=== PATIENT | female | born 1955 | race Caucasian/White ===

== ENCOUNTER 2018-01-18 13:08 | Emergency (ER) | payer MEDICAID ==
[2018-01-18 13:09] VITALS: BMI 23.3
[2018-01-18] MEDS ORDERED: Albuterol 0.083% Inhal Sol (2.5 mg/3 mL) UD IH STA (13:43)
[2018-01-18] MEDS ORDERED: Albuterol-Ipratrop 3 mg / 0.5 (3 ml) UD IH STA (13:43)
--- NOTE | 2018-01-18 13:52 | C.PDOC ---
History Of Present Illness 62 year old female with a PMHx of asthma and breast cancer presents to the emergency department with complaints of a cough that began three days ago, as well as seasonal allergy symptoms such as nasal congestion, post-nasal drip, and a sore throat. Patient describes her sore throat as a burning sensation in her upper airway. Patient states her cough is occasionally productive with yellow sputum, but otherwise it is mostly dry. Patient is treating herself with her asthma inhalers as well as Singulair and Prednisone but reports no relief. Patient is concerned about her symptoms due to her PMHx of breast cancer. Time Seen by Provider: 01/18/18 13:36 Chief Complaint (Nursing): Cough, Cold, Congestion History Per: Patient History/Exam Limitations: no limitations Onset/Duration Of Symptoms: Days (3) Current Symptoms Are (Timing): Still Present Location Of Pain: Throat Associated Symptoms: Sore Throat, Cough, Sputum (occasional, yellow), Sinus Drainage, Nasal Congestion Past Medical History Reviewed: Historical Data, Nursing Documentation, Vital Signs Vital Signs: Last Vital Signs Temp 97.9 F 01/18/18 13:17 Pulse 83 01/18/18 13:17 Resp 20 01/18/18 13:17 BP 135/82 01/18/18 13:17 Pulse Ox 97 01/18/18 13:58 - Medical History PMH: Anxiety (NO MEDICATION), Asthma, Bronchitis, COPD (ASTHMA), HTN, Malignancy (Breast), Migraine ("FROM MY SINSUS"), Pneumonia Denies: Chronic Kidney Disease Other Surgeries: Breast surgery - [facility] Procedures DX ULTRASOUND-THORAX NEC (05/27/13) EXCISE AXILLARY NODE (06/17/13) INJECT CA CHEMOTHER NEC (02/22/14) INJECT STEROID (11/01/13) INJECT/INFUSE NEC (03/12/14) INSERTION OF TOTALLY IMPLANTABLE VASC ACCESS DEVIC (08/25/13) LYMPHATIC SYSTEM SCAN (06/16/13) NEBULIZER THERAPY (03/12/14) PERCUTAN NEEDLE BIOPSY OF BREAST (05/27/13) SUBTOTAL MASTECTOMY (06/17/13) VASCULAR CATH IRRIGATION (05/12/15) Family History: States: No Known Family Hx - Social History Hx Tobacco Use: No Hx Alcohol Use: No Hx Substance Use: No - Immunization History Hx Tetanus Toxoid Vaccination: No Hx Influenza Vaccination: No Hx Pneumococcal Vaccination: No Review Of Systems ENT: Positive for: Nose Discharge, Nose Congestion, Throat Pain Respiratory: Positive for: Cough (mostly dry), Sputum (occasional, yellow) Physical Exam - Physical Exam Appears: Non-toxic, No Acute Distress Skin: Normal Color, Warm, Dry Eye(s): bilateral: Normal Inspection, PERRL, EOMI Ear(s): Bilateral: Normal Nose: Normal Oral Mucosa: Moist Throat: Normal Lymphatic: No Adenopathy Chest: Deformity Cardiovascular: Rhythm Regular Respiratory: Normal Breath Sounds, Wheezing (wheez and tight sound upon coughing ), Other (persistent cough) Neurological/Psych: Oriented x3, Normal Speech, Normal Cognition ED Course And Treatment - Laboratory Results Result Diagrams: 01/18/18 14:04 01/18/18 14:04 Lab Interpretation: Normal O2 Sat by Pulse Oximetry: 97 (RA) Pulse Ox Interpretation: Normal - Radiology CXR: Interpreted by Me CXR Interpretation: Yes: No Acute Disease Progress Note: Plan: CMP. CBC. CXR Two VIews. Albuterol 2.5mg INH. Duoneb 3ml INH. Nebulizer Treatment Reevaluation Time: 14:41 Reassessment Condition: Improved (after albuterol nebulizer. Lungs clear without wheezing during cough.) Disposition Counseled Patient/Family Regarding: Studies Performed, Diagnosis, Need For Followup, Rx Given - Disposition Referrals: Arley Shetty MD [Staff Provider] - Disposition: HOME/ ROUTINE Disposition Time: 14:41 Condition: IMPROVED Additional Instructions: Continue current asthma medication as prescribed, including Prednisone. Prescriptions: Azithromycin [Zithromax] 250 mg PO DAILY #1 packet Instructions: Upper Respiratory Infection (ED), Asthma in Adults Forms: [facility] ([place]) - Clinical Impression Clinical Impression: Upper respiratory infection, Exacerbation of asthma - Scribe Statement The provider has reviewed the documentation as recorded by the Scribe (Blayne Simms) Provider Attestation: All medical record entries made by the Scribe were at my direction and personally dictated by me. I have reviewed the chart and agree that the record accurately reflects my personal performance of the history, physical exam, medical decision making, and the department course for this patient. I have also personally directed, reviewed, and agree with the discharge instructions and disposition.
[2018-01-18 14:09] LABS: BASO % 0.4 % (0.0-2.0); EOS % 0.3 % (0.0-4.0); HEMOGLOBIN 13.1 g/dL (11.0-16.0); LYMPH # 1.6 K/uL (1.0-4.3); LYMPH % 16.3 % (20.0-40.0); MEAN CELL VOLUME 90.7 fL (81.0-99.0); MEAN CORPUSCULAR HEMOGLOBIN 30.9 pg (27.0-31.0); MEAN CORPUSCULAR HGB CONC 34.1 g/dL (33.0-37.0); MEAN PLATELET VOLUME 7.8 fL (7.2-11.7); MONO # 0.6 K/uL (0.0-0.8); MONO % 6.7 % (0.0-10.0); NEUT # 7.3 K/uL (1.8-7.0); NEUT % 76.3 % (50.0-75.0); RBC 4.25 Mil/uL (3.80-5.20); RED CELL DISTRIBUTION WIDTH 14.1 % (11.5-14.5)
[2018-01-18 14:12] LABS: WHITE BLOOD COUNT 9.6 K/uL (4.8-10.8)
[2018-01-18 14:20] LABS: ALB/GLOB RATIO 1.2 (1.0-2.1); ALBUMIN 4.4 g/dL (3.5-5.0); ALT/SGPT 34 U/L (9-52); AST/SGOT 29 U/L (14-36); BLOOD UREA NITROGEN 14 mg/dL (7-17); CALCIUM 10.3 mg/dl (8.6-10.4); GFR AFRICAN-AMERICAN > 60; GFR NON-AFRICAN AMERICAN > 60
[2018-01-18 14:52] VITALS: BP 132/82; PULSE 81; RESP 18; TEMP 98.4; O2SAT 98
--- NOTE | 2018-01-18 15:50 | RAD ---
HISTORY: SOB COMPARISON: Prior chest 01/20/2016. TECHNIQUE: Chest PA and lateral FINDINGS: LUNGS: No active pulmonary disease. PLEURA: No significant pleural effusion identified. No pneumothorax apparent. CARDIOVASCULAR: Normal. OSSEOUS STRUCTURES: No significant abnormalities. VISUALIZED UPPER ABDOMEN: Normal. OTHER FINDINGS: Surgical clips left breast once again evident with prior right MediPort now removed. IMPRESSION: No interval acute cardiopulmonary disease appreciated.
== END 2018-01-18 14:57 | disposition home or self-care (01) ==
LOC: C.ER 13:08
DX: J06.9 Acute upper respiratory infection, unspecified (principal); J45.901 Unspecified asthma with (acute) exacerbation

== ENCOUNTER 2018-07-11 15:53 | Inpatient (IN) | payer MEDICAID ==
[2018-07-11 15:53] VITALS: BMI 23.3
[2018-07-11] MEDS ORDERED: methylPREDNISolone 125 MG in Sodium Chloride 0.9% 100 ML IVPB ONE (16:57)
[2018-07-11] MEDS ORDERED: Albuterol-Ipratrop 3 mg / 0.5 (3 ml) UD INH STA ×3 (16:58→17:57)
--- NOTE | 2018-07-11 17:11 | C.PDOC ---
History Of Present Illness Pt is a 62 year old female with PMHx of breast cancer (2012) and asthma presents to ED for complaints of shortness of breath, cough with white phlegm, and chest tightness that began 1 week ago. Patient states she got her flu shot 2 days ago and symptoms worsened since then. Patient also states associated symptoms of generalized weakness and fatigue. Patient reports she has been hospitalized for asthma 2 months ago. Denies fever, nausea, vomiting, diarrhea, drug use, alcohol use, smoking, or any other physical complaints. Patient also states she started taking prednisone today and has been takig allergy medications and using her pump at home with no relief. Pt states that she just cannot stop coughing. PMD: * Arley Gaines Franch[employer] Consultant: * Sapna Castellanos Time Seen by Provider: 07/11/18 16:32 Chief Complaint (Nursing): Cough, Cold, Congestion History Per: Patient History/Exam Limitations: no limitations Onset/Duration Of Symptoms: Days Current Symptoms Are (Timing): Still Present Recent travel outside of the [place]: No Past Medical History Reviewed: Historical Data, Nursing Documentation, Vital Signs Vital Signs: Last Vital Signs Temp 98.8 F 07/11/18 16:01 Pulse 81 07/11/18 16:01 Resp 21 07/11/18 16:01 BP 113/76 07/11/18 16:01 Pulse Ox 99 07/11/18 16:01 - Medical History PMH: Anxiety (NO MEDICATION), Asthma, Bronchitis, COPD (ASTHMA), HTN, Malignancy (Breast), Migraine ("FROM MY SINSUS"), Pneumonia - [facility] Procedures DX ULTRASOUND-THORAX NEC (05/27/13) EXCISE AXILLARY NODE (06/17/13) INJECT CA CHEMOTHER NEC (02/22/14) INJECT STEROID (11/01/13) INJECT/INFUSE NEC (03/12/14) INSERTION OF TOTALLY IMPLANTABLE VASC ACCESS DEVIC (08/25/13) LYMPHATIC SYSTEM SCAN (06/16/13) NEBULIZER THERAPY (03/12/14) PERCUTAN NEEDLE BIOPSY OF BREAST (05/27/13) SUBTOTAL MASTECTOMY (06/17/13) VASCULAR CATH IRRIGATION (05/12/15) Family History: States: Unknown Family Hx - Social History Hx Tobacco Use: No Hx Alcohol Use: No Hx Substance Use: No - Immunization History Hx Tetanus Toxoid Vaccination: No Hx Influenza Vaccination: No Hx Pneumococcal Vaccination: No Review Of Systems Except As Marked, All Systems Reviewed And Found Negative. Constitutional: Positive for: Weakness. Negative for: Fever, Chills Cardiovascular: Positive for: Other (Chest tightness ) Respiratory: Positive for: Cough, Shortness of Breath (Due to Asthma ), Sputum (white ) Gastrointestinal: Negative for: Nausea, Vomiting, Diarrhea Skin: Negative for: Rash Neurological: Negative for: Weakness, Numbness Physical Exam - Physical Exam Appears: Non-toxic, No Acute Distress Skin: Normal Color, Warm, Dry, No Rash Head: Atraumatic Eye(s): bilateral: Normal Inspection, EOMI Ear(s): Bilateral: Normal Nose: Normal Oral Mucosa: Moist Tongue: Normal Appearing Lips: Normal Appearing Teeth: Normal Dentition Gingiva: Normal Appearing Throat: Normal, No Erythema, No Exudate, No Drooling, No Mass Neck: Normal ROM, Supple Chest: Symmetrical, No Tenderness Cardiovascular: Rhythm Regular, No Murmur Respiratory: Normal Breath Sounds, No Rales, No Rhonchi, Wheezing (mild end exp wheezing), Other (Frequent cough ) Gastrointestinal/Abdominal: Normal Exam, Bowel Sounds (Active ), Soft, No Tenderness Rectal: Deferred Back: Normal Inspection Extremity: Normal ROM Extremity: Bilateral: Atraumatic, Normal Color And Temperature, Normal ROM Pulses: Left Radial: Normal, Right Radial: Normal Neurological/Psych: Oriented x3, Normal Speech Gait: Steady ED Course And Treatment - Laboratory Results Result Diagrams: 07/11/18 17:21 07/11/18 17:21 O2 Sat by Pulse Oximetry: 99 (RA) Pulse Ox Interpretation: Normal - Other Rad CXR X-Ray: Viewed By Me, Read By Radiologist Interpretation: Date of service: 07/11/2018. HISTORY: SOB cough. COMPARISON: No prior. TECHNIQUE: Chest PA and lateral. FINDINGS: LUNGS: No active pulmonary disease. PLEURA: No significant pleural effusion identified. No pneumothorax apparent. CARDIOVASCULAR: No aortic atherosclerotic calcification present. Normal cardiac size. No pulmonary vascular congestion. OSSEOUS STRUCTURES: No significant abnormalities. VISUALIZED UPPER ABDOMEN: Normal. OTHER FINDINGS: Surgical clips again seen the left chest inferiorly. IMPRESSION: No interval acute cardiopulmonary disease appreciated. Medical Decision Making Medical Decision Making: Initial Impression: Asthma exacerbation r/o pneumonia Initial Plan: * Albuterol Nebulizer Treatment/Peak Flow * SOLU-Medrol * CXR * Blood Work * EKG * Flu AB Swab Progress Note(s): 6:41 PM - Case d/w Dr. Ayala. Pt won't stop coughing and still SOB even though given nebs. Dr. Ayala and I agree that pt will benefit from observation stay for further treatment. Disposition Counseled Patient/Family Regarding: Studies Performed, Diagnosis - Disposition Disposition: HOSPITALIZED Disposition Time: 18:29 Condition: FAIR Forms: [employer] (Latvian) - POA Present On Arrival: None - Clinical Impression Clinical Impression: Asthma attack, Bronchitis - Scribe Statement The provider has reviewed the documentation as recorded by the Scribe Liz Royal All medical record entries made by the Scribe were at my direction and personally dictated by me. I have reviewed the chart and agree that the record accurately reflects my personal performance of the history, physical exam, medical decision making, and the department course for this patient. I have also personally directed, reviewed, and agree with the discharge instructions and disposition. Decision To Admit - Pt Status Changed To: Hospital Disposition Of: Observation - . Bed Request Type: Regular Admitting Physician: Junito Ayala Patient Diagnosis: Asthma attack, Bronchitis
[2018-07-11 17:24] LABS: BASO % 0.7 % (0.0-2.0); EOS % 0.6 % (0.0-4.0); HEMOGLOBIN 12.2 g/dL (11.0-16.0); LYMPH # 0.8 K/uL (1.0-4.3); MEAN CELL VOLUME 89.8 fL (81.0-99.0); MEAN CORPUSCULAR HEMOGLOBIN 31.1 pg (27.0-31.0); MEAN CORPUSCULAR HGB CONC 34.6 g/dL (33.0-37.0); MONO # 0.3 K/uL (0.0-0.8); MONO % 5.9 % (0.0-10.0); NEUT # 4.4 K/uL (1.8-7.0); NEUT % 77.8 % (50.0-75.0); NRBC % 0.1 % (0.0-2.0); RBC 3.91 Mil/uL (3.80-5.20); RED CELL DISTRIBUTION WIDTH 13.8 % (11.5-14.5); WHITE BLOOD COUNT 5.6 K/uL (4.8-10.8)
[2018-07-11 17:37] LABS: ALB/GLOB RATIO 1.4 (1.0-2.1); ALBUMIN 4.3 g/dL (3.5-5.0); ALT/SGPT 29 U/L (9-52); AST/SGOT 24 U/L (14-36); BLOOD UREA NITROGEN 13 mg/dL (7-17); CALCIUM 9.6 mg/dl (8.6-10.4); GFR NON-AFRICAN AMERICAN > 60
[2018-07-11] MEDS ORDERED: Albuterol-Ipratrop 3 mg / 0.5 (3 ml) UD ONE ×2 (17:45→18:27)
--- NOTE | 2018-07-11 18:26 | RAD ---
Date of service: 07/11/2018 HISTORY: SOB cough COMPARISON: No prior. TECHNIQUE: Chest PA and lateral FINDINGS: LUNGS: No active pulmonary disease. PLEURA: No significant pleural effusion identified. No pneumothorax apparent. CARDIOVASCULAR: No aortic atherosclerotic calcification present. Normal cardiac size. No pulmonary vascular congestion. OSSEOUS STRUCTURES: No significant abnormalities. VISUALIZED UPPER ABDOMEN: Normal. OTHER FINDINGS: Surgical clips again seen the left chest inferiorly. IMPRESSION: No interval acute cardiopulmonary disease appreciated.
[2018-07-11] MEDS ORDERED: guaiFENesin 100 mg/5 ml Syrup UD PO PRN (18:30)
[2018-07-11] MEDS: MethylPREDNISolone 40 mg Vial IVP SCH (18:44)
[2018-07-11] MEDS ORDERED: Home Med 1 UNIT PO SCH (22:00)
[2018-07-12] MEDS: MethylPREDNISolone 40 mg Vial IVP SCH ×4 (00:13→18:03)
[2018-07-12] MEDS: Albuterol-Ipratrop 3 mg / 0.5 (3 ml) UD INH SCH ×6 (00:20→19:41)
[2018-07-12 08:08] LABS: BASO % 0.1 % (0.0-2.0); HEMOGLOBIN 12.5 g/dL (11.0-16.0); LYMPH # 1.1 K/uL (1.0-4.3); LYMPH % 12.9 % (20.0-40.0); MEAN CELL VOLUME 90.1 fL (81.0-99.0); MEAN CORPUSCULAR HEMOGLOBIN 30.8 pg (27.0-31.0); MEAN CORPUSCULAR HGB CONC 34.2 g/dL (33.0-37.0); MEAN PLATELET VOLUME 8.3 fL (7.2-11.7); MONO # 0.2 K/uL (0.0-0.8); MONO % 2.7 % (0.0-10.0); NEUT # 7.1 K/uL (1.8-7.0); NEUT % 84.3 % (50.0-75.0); RBC 4.07 Mil/uL (3.80-5.20); RED CELL DISTRIBUTION WIDTH 13.4 % (11.5-14.5); WHITE BLOOD COUNT 8.4 K/uL (4.8-10.8)
[2018-07-12 08:23] LABS: ALB/GLOB RATIO 1.4 (1.0-2.1); ALBUMIN 4.4 g/dL (3.5-5.0); ALT/SGPT 24 U/L (9-52); AST/SGOT 22 U/L (14-36); BLOOD UREA NITROGEN 16 mg/dL (7-17); CALCIUM 9.7 mg/dl (8.6-10.4); GFR NON-AFRICAN AMERICAN > 60
[2018-07-12] MEDS: Omega-3-Acid Ethyl Esters 1 GM Cap PO SCH (10:14)
[2018-07-12] MEDS: Pantoprazole 40 mg EC Tab PO SCH (18:48)
[2018-07-12] MEDS: ANASTROZOLE PO SCH (21:27)
[2018-07-12] MEDS: [UNRECOGNIZED DRUG - OTHER] PO SCH (21:27)
[2018-07-13] MEDS: MethylPREDNISolone 40 mg Vial IVP SCH ×4 (00:20→17:32)
[2018-07-13] MEDS: Albuterol-Ipratrop 3 mg / 0.5 (3 ml) UD INH SCH ×6 (00:21→20:56)
--- NOTE | 2018-07-13 08:10 | CP.PCM.PN ---
Subjective - Date & Time of Evaluation Date of Evaluation: 07/13/18 Time of Evaluation: 08:10 - Subjective Subjective: PGY2- Progress note for Dr. Ayala Patient is a 62 year old female with a history of breast cancer, asthma, HTN, and HLD, who presented with complaints of weakness, cough, and shortness of breath since . The patient states she went to her PMD on , received a flu shot, and since then, her symptoms have worsen. She currently complains of weakness, cough with white phlegm, soreness and pain with coughing, and nausea. She hs been using her Ventolin at least twice daily, her nebulizer, and Advair 500/50 BID. The patient denies fevers, headaches, vomiting, chest pain, palpitations, dysuria, hematuria, constipation, diarrhea. PMD: Dr. Sapna Shetty Certified Massage Therapist: Dr. Ayala PMHx: Breast cancer (diagnosed in 2012; underwent chemo and radiation in 2013); asthma, HTN, HLD SurgHx: Lumpectomy 2012; sinus surgery 2015 FamHx: Sister- lymphoma Allergies: Egg, Contrast, PCN Medication: Advair 500/50 BID, Lisinopril 10mg PO daily, Arimidex 1mg PO daily, [place] 3 daily, Ventolin prn Objective - Vital Signs/Intake and Output Vital Signs (last 24 hours): Temp Pulse Resp BP Pulse Ox 98.6 F 86 18 120/74 96 07/13/18 07:45 07/13/18 07:45 07/13/18 07:45 07/13/18 07:45 07/13/18 07:45 Intake and Output: 07/13/18 07/13/18 06:59 18:59 Intake Total 300 Output Total 400 Balance -100 - Medications Medications: Current Medications Albuterol/Ipratropium (Duoneb 3 Mg/0.5 Mg (3 Ml) Ud) 3 ml INH RQ4 [facility] Last Admin: 07/13/18 07:21 Dose: Not Given Aspirin (Ecotrin) 81 mg PO DAILY [facility] Last Admin: 07/12/18 10:14 Dose: 81 mg Guaifenesin (Robitussin) 100 mg PO QID PRN PRN Reason: Cough Home Med (Patient's Own Medication) 1 tab PO [facility] Last Admin: 07/12/18 21:27 Dose: 1 tab Lisinopril (Zestril) 10 mg PO DAILY [facility] Last Admin: 07/12/18 10:15 Dose: 10 mg Methylprednisolone (Solu-Medrol) 40 mg IVP Q6H [facility] Last Admin: 07/13/18 06:00 Dose: 40 mg Montelukast Sodium (Singulair) 10 mg PO HS [facility] Last Admin: 07/12/18 21:27 Dose: 10 mg Vttva-3-Wkpw Ethyl Esters (Lovaza) 1 gm PO DAILY [facility] Last Admin: 07/12/18 10:14 Dose: 1 gm Pantoprazole Sodium (Protonix Ec Tab) 40 mg PO DAILY [facility] Last Admin: 07/12/18 18:48 Dose: 40 mg Pneumococcal Polyvalent Vaccine (Pneumovax 23 Vaccine) 0.5 ml IM .ONCE ONE Stop: 07/13/18 10:01 - Labs Labs: 07/12/18 07:51 07/12/18 07:51 - Constitutional Appears: No Acute Distress - Head Exam Head Exam: NORMAL INSPECTION - Eye Exam Eye Exam: EOMI, Normal appearance - ENT Exam ENT Exam: Mucous Membranes Moist - Respiratory Exam Respiratory Exam: NORMAL BREATHING PATTERN. absent: Rales, Rhonchi, Wheezes, Respiratory Distress - Cardiovascular Exam Cardiovascular Exam: REGULAR RHYTHM, +S1, +S2 - GI/Abdominal Exam GI & Abdominal Exam: Soft, Normal Bowel Sounds. absent: Distended, Firm, Guarding, Tenderness - Extremities Exam Extremities Exam: Normal Inspection. absent: Calf Tenderness, Pedal Edema, Tenderness - Neurological Exam Neurological Exam: Alert, Awake, Oriented x3 - Psychiatric Exam Psychiatric exam: Normal Affect, Normal Mood - Skin Skin Exam: Dry, Intact, Normal Color, Warm Assessment and Plan - Assessment and Plan (Free Text) Plan: Asthma Exacerbation - Duonebs Q4 - Solumedrol 40mg IV Q6h - Breo 1 puf daily (Hospital does not carry Advair) - Robitussin DM prn for cough - Singulair 10mg PO daily Hx of Breast Cancer - Continue home medication: Arimidex 1mg PO daily HTN - Lisinopril 10mg PO daily HLD - Omega3 PO daily - ASA 81mg PO daily Prophylaxis - DVT: Heparin 5000u SC Q12h, SCDs - GI: not indicated - Heart healthy diet All management and orders per Dr. Ayala
[2018-07-13] MEDS: Pantoprazole 40 mg EC Tab PO SCH (09:47)
[2018-07-13] MEDS: Omega-3-Acid Ethyl Esters 1 GM Cap PO SCH (09:47)
[2018-07-13] MEDS ORDERED: Pneumococcal 23-Valent Vaccine IM ONE (10:00)
[2018-07-13] MEDS ORDERED: guaiFENesin DM 200 mg-20 mg/10 ml UD PO PRN (11:36)
[2018-07-13 16:06] VITALS: RESP 20
[2018-07-13] MEDS ORDERED: Influenza Vaccine 60 MCG/0.5 ML SYR (3 yr & up) IM ONE (21:08)
[2018-07-13] MEDS: ANASTROZOLE PO SCH (21:34)
[2018-07-13] MEDS: [UNRECOGNIZED DRUG - OTHER] PO SCH (21:34)
[2018-07-14] MEDS: Albuterol-Ipratrop 3 mg / 0.5 (3 ml) UD INH SCH ×6 (00:17→19:42)
[2018-07-14] MEDS: MethylPREDNISolone 40 mg Vial IVP SCH ×4 (00:28→18:33)
[2018-07-14 07:13] LABS: HEMOGLOBIN 12.2 g/dL (11.0-16.0); LYMPH # 1.1 K/uL (1.0-4.3); LYMPH % 6.8 % (20.0-40.0); MEAN CELL VOLUME 89.1 fL (81.0-99.0); MEAN CORPUSCULAR HEMOGLOBIN 30.4 pg (27.0-31.0); MEAN CORPUSCULAR HGB CONC 34.1 g/dL (33.0-37.0); MEAN PLATELET VOLUME 8.2 fL (7.2-11.7); MONO # 0.7 K/uL (0.0-0.8); MONO % 4.6 % (0.0-10.0); NEUT % 88.6 % (50.0-75.0); PLATELET COUNT 252 K/uL (130-400); RBC 4.01 Mil/uL (3.80-5.20); RED CELL DISTRIBUTION WIDTH 13.8 % (11.5-14.5)
[2018-07-14 07:17] LABS: WHITE BLOOD COUNT 15.8 K/uL (4.8-10.8)
[2018-07-14] MEDS: Fluticasone-Vilanterol 200/25mcg Diskus INH SCH (07:35)
[2018-07-14 08:09] LABS: ALB/GLOB RATIO 1.5 (1.0-2.1); ALBUMIN 4.1 g/dL (3.5-5.0); ALT/SGPT 20 U/L (9-52); AST/SGOT 22 U/L (14-36); BLOOD UREA NITROGEN 28 mg/dL (7-17); CALCIUM 9.4 mg/dl (8.6-10.4); GFR NON-AFRICAN AMERICAN > 60
[2018-07-14 08:35] LABS: LYMPHOCYTE 7 % (20-40); MONOCYTE 3 % (0-10); MYELOCYTE 1 % (0-0); NEUTROPHIL 89 % (50-75); PLATELET ESTIMATE NORMAL (NORMAL); TOTAL CELLS COUNTED 100
--- NOTE | 2018-07-14 10:01 | HP ---
HISTORY OF PRESENT ILLNESS: A 62-year-old female. The patient was admitted to the hospital with chief complaint of shortness of breath, weakness, fatigue, tiredness, cough. The patient came to the ER, presenting with history of breast cancer, COPD asthma. The patient is nonsmoker and nondrinker. PHYSICAL EXAMINATION: GENERAL: The patient is awake, alert, and oriented . VITAL SIGNS: Temperature 98, pulse 90. HEENT: Within normal limits. NECK: Supple. CHEST: Symmetrical. Good air entry. HEART: Regular. ABDOMEN: Soft. EXTREMITIES: No edema. IMPRESSION AND PLAN: The patient suffers from bronchial asthma, status asthmaticus. The patient is on bedrest, bronchodilators, steroid. Junito Ayala MD
[2018-07-14] MEDS ORDERED: Albuterol 0.083% Inhal Sol (2.5 mg/3 mL) UD INH STA (10:18)
[2018-07-14] MEDS: Pantoprazole 40 mg EC Tab PO SCH (11:08)
[2018-07-14] MEDS: Omega-3-Acid Ethyl Esters 1 GM Cap PO SCH (11:08)
--- NOTE | 2018-07-14 11:27 | CP.PCM.PN ---
Subjective - Date & Time of Evaluation Date of Evaluation: 07/14/18 Time of Evaluation: 11:25 - Subjective Subjective: Progress note. Attending: Dr. Ayala. Pt seen and examined at bedside. No acute distress. No events overnight. No fevers, chills, vomiting, diarrhea. Objective - Vital Signs/Intake and Output Vital Signs (last 24 hours): Temp Pulse Resp BP Pulse Ox 98.1 F 66 20 147/84 95 07/14/18 07:00 07/14/18 07:00 07/14/18 07:00 07/14/18 07:00 07/14/18 07:00 Intake and Output: 07/14/18 07/14/18 06:59 18:59 Intake Total 500 Output Total 600 Balance -100 - Medications Medications: Current Medications Albuterol/Ipratropium (Duoneb 3 Mg/0.5 Mg (3 Ml) Ud) 3 ml INH RQ4 [facility] Last Admin: 07/14/18 07:35 Dose: 3 ml Aspirin (Ecotrin) 81 mg PO DAILY [facility] Last Admin: 07/14/18 11:08 Dose: 81 mg Fluticasone/Vilanterol (Breo Ellipta 200-25 Mcg Inh) 1 puff INH RQD [facility] Guaifenesin/Dextromethorphan (Robitussin Dm) 10 ml PO Q4H PRN PRN Reason: Cough and congestion Heparin Sodium (Porcine) (Heparin) 5,000 units SC Q12 [facility] Last Admin: 07/14/18 11:07 Dose: 5,000 units Home Med (Patient's Own Medication) 1 tab PO [facility] Last Admin: 07/13/18 21:34 Dose: 1 tab Lisinopril (Zestril) 10 mg PO DAILY [facility] Last Admin: 07/14/18 11:08 Dose: 10 mg Methylprednisolone (Solu-Medrol) 40 mg IVP Q6H [facility] Last Admin: 07/14/18 06:23 Dose: 40 mg Montelukast Sodium (Singulair) 10 mg PO HS [facility] Last Admin: 07/13/18 21:34 Dose: 10 mg Udjzv-3-Lynl Ethyl Esters (Lovaza) 1 gm PO DAILY [facility] Last Admin: 07/14/18 11:08 Dose: 1 gm Pantoprazole Sodium (Protonix Ec Tab) 40 mg PO DAILY [facility] Last Admin: 07/14/18 11:08 Dose: 40 mg Pneumococcal Polyvalent Vaccine (Pneumovax 23 Vaccine) 0.5 ml IM .ONCE ONE Stop: 07/15/18 10:01 - Labs Labs: 07/14/18 07:03 07/14/18 07:03 - Constitutional Appears: Non-toxic, No Acute Distress - Head Exam Head Exam: ATRAUMATIC, NORMAL INSPECTION, NORMOCEPHALIC - Eye Exam Eye Exam: EOMI - ENT Exam ENT Exam: Mucous Membranes Moist, Normal Exam - Neck Exam Neck Exam: Full ROM, Normal Inspection. absent: Lymphadenopathy - Respiratory Exam Respiratory Exam: NORMAL BREATHING PATTERN. absent: Respiratory Distress - Cardiovascular Exam Cardiovascular Exam: +S1, +S2 - GI/Abdominal Exam GI & Abdominal Exam: Soft, Normal Bowel Sounds. absent: Tenderness - Extremities Exam Extremities Exam: Full ROM, Normal Inspection - Neurological Exam Neurological Exam: Alert, Awake, Oriented x3 - Psychiatric Exam Psychiatric exam: Normal Affect, Normal Mood - Skin Skin Exam: Dry, Intact, Normal Color, Warm Assessment and Plan - Assessment and Plan (Free Text) Assessment: This is a 62 yo female with 1. Asthma Exacerbation - Duonebs Q4, extra duoneb given this morning - Solumedrol 40mg IV Q6h - Breo 1 puf daily (Hospital does not carry Advair) - Robitussin DM prn for cough - Singulair 10mg PO daily 2. Hx of Breast Cancer - Continue home medication: Arimidex 1mg PO daily 3. HTN - Lisinopril 10mg PO daily 4. HLD -[place] 3 PO daily 5. CV risk reduction - ASA 81 mg PO daily 6. GI/DVT Prophylaxis - DVT: Heparin 5000 u SC Q12h, SCDs - GI: protonix 40 daily - Heart healthy diet discussed with Dr. Ayala.
--- NOTE | 2018-07-14 15:50 | CARD ---
APPROVED REPORT Date of service: 07/11/2018 EKG Measurement Heart [id number] <Conclusion> Normal sinus rhythm Normal Electrocardiogram
[2018-07-14 20:35] VITALS: O2SAT 96
[2018-07-14] MEDS: [UNRECOGNIZED DRUG - OTHER] PO SCH (21:20)
[2018-07-14] MEDS: ANASTROZOLE PO SCH (21:20)
[2018-07-15] MEDS: MethylPREDNISolone 40 mg Vial IVP SCH ×3 (00:06→12:05)
[2018-07-15] MEDS: Albuterol-Ipratrop 3 mg / 0.5 (3 ml) UD INH SCH ×3 (00:58→13:03)
[2018-07-15 08:22] LABS: BASO % 0.1 % (0.0-2.0); HEMOGLOBIN 12.4 g/dL (11.0-16.0); LYMPH % 8.1 % (20.0-40.0); MEAN CELL VOLUME 89.3 fL (81.0-99.0); MEAN CORPUSCULAR HEMOGLOBIN 30.7 pg (27.0-31.0); MEAN CORPUSCULAR HGB CONC 34.3 g/dL (33.0-37.0); MEAN PLATELET VOLUME 8.4 fL (7.2-11.7); MONO # 0.6 K/uL (0.0-0.8); MONO % 5.1 % (0.0-10.0); NEUT # 10.9 K/uL (1.8-7.0); NEUT % 86.7 % (50.0-75.0); PLATELET COUNT 253 K/uL (130-400); RBC 4.04 Mil/uL (3.80-5.20); RED CELL DISTRIBUTION WIDTH 13.6 % (11.5-14.5); WHITE BLOOD COUNT 12.5 K/uL (4.8-10.8)
[2018-07-15 08:50] LABS: ALB/GLOB RATIO 1.5 (1.0-2.1); ALBUMIN 4.1 g/dL (3.5-5.0); ALT/SGPT 21 U/L (9-52); AST/SGOT 23 U/L (14-36); BLOOD UREA NITROGEN 22 mg/dL (7-17); CALCIUM 9.5 mg/dl (8.6-10.4); GFR NON-AFRICAN AMERICAN > 60
[2018-07-15 08:58] LABS: LYMPHOCYTE 5 % (20-40); MONOCYTE 6 % (0-10); NEUTROPHIL 89 % (50-75); PLATELET ESTIMATE NORMAL (NORMAL); TOTAL CELLS COUNTED 100
[2018-07-15] MEDS: Fluticasone-Vilanterol 200/25mcg Diskus INH SCH (09:15)
[2018-07-15] MEDS: Omega-3-Acid Ethyl Esters 1 GM Cap PO SCH (09:54)
[2018-07-15] MEDS: Pantoprazole 40 mg EC Tab PO SCH (09:58)
[2018-07-15] MEDS ORDERED: Pneumococcal 23-Valent Vaccine IM ONE (10:00)
[2018-07-15 13:43] VITALS: BP 135/78; PULSE 80; TEMP 97.4
--- NOTE | 2018-07-15 13:50 | CP.PCM.PN ---
Subjective - Date & Time of Evaluation Date of Evaluation: 07/15/18 Time of Evaluation: 13:45 - Subjective Subjective: Progress note. Attending: Dr. Ayala. Pt seen and examined at bedside. No acute distress. NO events overnight. No fevers, chills, vomiting, diarrhea. Objective - Vital Signs/Intake and Output Vital Signs (last 24 hours): Temp Pulse Resp BP Pulse Ox 97.4 F L 80 20 135/78 96 07/15/18 08:00 07/15/18 08:00 07/15/18 08:00 07/15/18 08:00 07/15/18 08:00 Intake and Output: 07/15/18 07/15/18 06:59 18:59 Intake Total 740 Balance 740 - Medications Medications: Current Medications Albuterol/Ipratropium (Duoneb 3 Mg/0.5 Mg (3 Ml) Ud) 3 ml INH RQ4 [facility] Last Admin: 07/15/18 13:03 Dose: 3 ml Aspirin (Ecotrin) 81 mg PO DAILY [facility] Last Admin: 07/15/18 09:54 Dose: 81 mg Fluticasone/Vilanterol (Breo Ellipta 200-25 Mcg Inh) 1 puff INH RQD [facility] Last Admin: 07/15/18 09:15 Dose: 1 puff Guaifenesin/Dextromethorphan (Robitussin Dm) 10 ml PO Q4H PRN PRN Reason: Cough and congestion Heparin Sodium (Porcine) (Heparin) 5,000 units SC Q12 [facility] Last Admin: 07/15/18 09:55 Dose: 5,000 units Home Med (Patient's Own Medication) [address] [facility] Last Admin: 07/14/18 21:20 Dose: 1 tab Lisinopril (Zestril) 10 mg PO DAILY [facility] Last Admin: 07/15/18 09:54 Dose: 10 mg Methylprednisolone (Solu-Medrol) 40 mg IVP Q6H [facility] Last Admin: 07/15/18 12:05 Dose: 40 mg Montelukast Sodium (Singulair) 10 mg PO HS [facility] Last Admin: 07/14/18 21:21 Dose: 10 mg Vtgme-4-Cuxm Ethyl Esters (Lovaza) 1 gm PO DAILY [facility] Last Admin: 07/15/18 09:54 Dose: 1 gm Pantoprazole Sodium (Protonix Ec Tab) 40 mg PO DAILY [facility] Last Admin: 07/15/18 09:58 Dose: 40 mg - Labs Labs: 07/15/18 08:09 07/15/18 08:09 - Constitutional Appears: Non-toxic, No Acute Distress - Head Exam Head Exam: ATRAUMATIC, NORMAL INSPECTION, NORMOCEPHALIC - Eye Exam Eye Exam: EOMI - ENT Exam ENT Exam: Mucous Membranes Moist - Neck Exam Neck Exam: Full ROM, Normal Inspection - Respiratory Exam Respiratory Exam: NORMAL BREATHING PATTERN. absent: Respiratory Distress - Cardiovascular Exam Cardiovascular Exam: REGULAR RHYTHM, +S1, +S2. absent: Murmur - GI/Abdominal Exam GI & Abdominal Exam: Soft, Normal Bowel Sounds. absent: Tenderness - Extremities Exam Extremities Exam: Full ROM, Normal Inspection - Back Exam Back Exam: NORMAL INSPECTION - Neurological Exam Neurological Exam: Alert, Awake, Oriented x3 - Psychiatric Exam Psychiatric exam: Normal Affect, Normal Mood - Skin Skin Exam: Dry, Intact, Normal Color, Warm Assessment and Plan - Assessment and Plan (Free Text) Assessment: This is a 62 yo female with This is a 62 yo female with 1. Asthma Exacerbation - Duonebs Q4, extra duoneb given this morning - Solumedrol 40mg IV Q6h - Breo 1 puf daily (Hospital does not carry Advair) - Robitussin DM prn for cough - Singulair 10mg PO daily -dc today on medrol dose pack 2. Hx of Breast Cancer - Continue home medication: Arimidex 1mg PO daily 3. HTN - Lisinopril 10mg PO daily 4. HLD -[place] 3 PO daily 5. CV risk reduction - ASA 81 mg PO daily 6. GI/DVT Prophylaxis - DVT: Heparin 5000 u SC Q12h, SCDs - GI: protonix 40 daily - Heart healthy diet discussed with Dr. Ayala.
== END 2018-07-15 17:06 | disposition home or self-care (01) | DRG 96 ==
LOC: C.ER 15:53 → C.3T 18:28 → OBSVTOIN 07-13 16:04
PROVIDERS: ADMIT Internal Medicine Pulmonary Disease; ATTEND Internal Medicine Pulmonary Disease
DX: J45.902 Unspecified asthma with status asthmaticus (principal); J44.9 Chronic obstructive pulmonary disease, unspecified; I10 Essential (primary) hypertension; E78.5 Hyperlipidemia, unspecified; Z85.3 Personal history of malignant neoplasm of breast; Z79.82 Long term (current) use of aspirin; Z92.21 Personal history of antineoplastic chemotherapy; Z92.3 Personal history of irradiation; Z80.7 Family history of other malignant neoplasms of lymphoid, hematopoietic and related tissues

== ENCOUNTER 2018-07-18 19:53 | Emergency (ER) | payer MEDICAID ==
[2018-07-18 19:54] VITALS: BMI 23.3
[2018-07-18 20:11] VITALS: BP 117/75; PULSE 73; RESP 14; TEMP 97.9; O2SAT 98
[2018-07-18] MEDS ORDERED: DiphenhydrAMINE 50 mg/ml Inj IM STA (20:38)
[2018-07-18] MEDS ORDERED: DiphenhydrAMINE 50 mg/ml Inj ONE (20:49)
--- NOTE | 2018-07-18 20:58 | C.PDOC ---
History Of Present Illness 62 year old female c/o general puritis that started today at 17:00. Patient stats she was recently admitted for COPD and is currently taking Medrol that was prescribed to her. Patient denies new medications, detergents or foods. Patient denies fever, chills, nausea, vomit, trouble swallowing, SOB, facial swelling, tongue or lip swelling. Time Seen by Provider: 07/18/18 20:30 Chief Complaint (Nursing): Abnormal Skin Integrity History Per: Patient History/Exam Limitations: no limitations Onset/Duration Of Symptoms: Hrs (17:00) Current Symptoms Are (Timing): Still Present Quality Of Symptoms: Itching Recent travel outside of the [place]: No Additional History Per: Patient Past Medical History Reviewed: Historical Data, Nursing Documentation, Vital Signs Vital Signs: Last Vital Signs Temp 97.9 F 07/18/18 20:08 Pulse 73 07/18/18 20:08 Resp 14 07/18/18 20:08 BP 117/75 07/18/18 20:08 Pulse Ox 98 07/18/18 20:08 - Medical History PMH: Anxiety (NO MEDICATION), Asthma, Bronchitis, COPD (ASTHMA), HTN, Malignancy (Breast), Migraine ("FROM MY SINSUS"), Pneumonia Denies: Chronic Kidney Disease Surgical History: No Surg Hx - [facility] Procedures DX ULTRASOUND-THORAX NEC (05/27/13) EXCISE AXILLARY NODE (06/17/13) INJECT CA CHEMOTHER NEC (02/22/14) INJECT STEROID (11/01/13) INJECT/INFUSE NEC (03/12/14) INSERTION OF TOTALLY IMPLANTABLE VASC ACCESS DEVIC (08/25/13) LYMPHATIC SYSTEM SCAN (06/16/13) NEBULIZER THERAPY (03/12/14) PERCUTAN NEEDLE BIOPSY OF BREAST (05/27/13) SUBTOTAL MASTECTOMY (06/17/13) VASCULAR CATH IRRIGATION (05/12/15) Family History: States: Unknown Family Hx - Social History Hx Tobacco Use: No Hx Alcohol Use: No Hx Substance Use: No - Immunization History Hx Tetanus Toxoid Vaccination: No Hx Influenza Vaccination: No Hx Pneumococcal Vaccination: No Review Of Systems Constitutional: Negative for: Fever, Chills ENT: Negative for: Mouth Swelling, Throat Swelling Respiratory: Negative for: Cough, Shortness of Breath, Wheezing Gastrointestinal: Negative for: Nausea, Vomiting Skin: Positive for: Rash Neurological: Negative for: Weakness, Numbness, Headache, Dizziness Physical Exam - Physical Exam Appears: Non-toxic, No Acute Distress Skin: Warm, Dry, Rash (diffuse urticarial rash ) Head: Atraumatic, Normacephalic Eye(s): bilateral: Normal Inspection, PERRL, EOMI Oral Mucosa: Moist Tongue: No Swelling Lips: No Swelling Throat: Normal, No Erythema, No Exudate Neck: Normal ROM, Supple Chest: Symmetrical Cardiovascular: Rhythm Regular Respiratory: Normal Breath Sounds, No Rales, No Rhonchi, No Wheezing Extremity: Normal ROM, No Tenderness, No Swelling Neurological/Psych: Oriented x3, Normal Speech, Normal Cognition Gait: Steady ED Course And Treatment O2 Sat by Pulse Oximetry: 98 (On RA) Pulse Ox Interpretation: Normal Progress Note: Plan: - Benadryl 50 mg IM. - Pepcid 40 mg PO. Patient states she feels better afte the medciations, patient breathing without difficulty, no facial swelling. Patient was advised to follow up with PMD. Disposition - Disposition Referrals: Arley Shetty MD [Staff Provider] - Disposition: HOME/ ROUTINE Disposition Time: 20:58 Condition: STABLE Additional Instructions: Follow up with your PMD within 1-2 days. Return to ED if feel worse. Prescriptions: DiphenhydrAMINE [Benadryl] 25 mg PO .Q4-6 H #30 cap Famotidine [Pepcid] 20 mg PO BID #20 tab Instructions: Skin Rash (DC), Hives (DC) Forms: [facility] (Greenlandic) - Clinical Impression Clinical Impression: Allergic reaction - PA / [employer] SERV[employer] CONSULTANT / Resident Statement MD/DO has reviewed & agrees with the documentation as recorded. - Scribe Statement The provider has reviewed the documentation as recorded by the Scribe Alok Her All medical record entries made by the Scribe were at my direction and personally dictated by me. I have reviewed the chart and agree that the record accurately reflects my personal performance of the history, physical exam, medical decision making, and the department course for this patient. I have also personally directed, reviewed, and agree with the discharge instructions and disposition.
== END 2018-07-18 21:04 | disposition home or self-care (01) ==
LOC: C.ER 19:53
DX: T78.40XA Allergy, unspecified, initial encounter (principal); X58.XXXA Exposure to other specified factors, initial encounter; I10 Essential (primary) hypertension
CPT/HCPCS: 96372; 99283; J1200

== ENCOUNTER 2018-10-03 09:30 | Outpatient (CLI) | payer MEDICAID | END 2018-10-03 09:31 | disposition home or self-care (01) | LOC: C.LAB 09:30 ==